=== PATIENT | male | born 1970 | race Caucasian/White ===

== ENCOUNTER 2017-06-03 14:25 | Emergency (ER) | payer SELFPAY ==
[~2017-06-03] VITALS: Ht 177.8 cm; Wt 140.0 kg
[2017-06-03] MEDS ORDERED: DEXTROSE 50% IN WATER 50 ML SYRINGE IV ONE (14:26)
[2017-06-03] MEDS ORDERED: SODIUM BICARBONATE 8.4% INJ 50 MEQ/50 ML SYR IV ONE (14:26)
[2017-06-03] MEDS ORDERED: EPINEPHrine HCL (1:10,000) 1 MG/10 ML SYRINGE IV ONE (14:26)
--- NOTE | 2017-06-03 14:46 | PD ---
HPI Chief Complaint: S/P ARREST Time Seen by Provider: 14:40 Travel History International Travel<30 days: No Contact w/Intl Traveler<30days: No Traveled to known affect area: No History of Present Illness HPI I SAW PATIENT IMMEDIATELY UPON ARRIVAL, CONFIRMED ETT FOR EMS....BELOW HX GIVEN BY EMS. PER EMS, COLLAPSED ON [employer] HOTEL AFTER HE C/O CP, TOOK ANTACIDS, HERE WITH FAMILY FROM OUT OF TOWN. EMS GAVE AMIODARONE 300MG, S/P DEFIB, EPIX3 AND INITIAL CPR STARTED AT 1331 BY HOTEL STAFF. [facility] Past Medical History Medical History: Unable to Obtain Social History Tobacco Use: No Review of Systems ROS Limitations: Clinical Condition Physical Exam Exam Limitations: Clinical Condition Narrative GENERAL: SKIN: CYANOTIC, HEAD: Atraumatic. Normocephalic. EYES: Pupils DILATED AND UNREACTIVE . ENT: No nasal bleeding or discharge. Mucous membranes pink and moist. NECK: Trachea midline. No JVD. CARDIOVASCULAR: ASYSTOLE RESPIRATORY: ETT 7.5, 22 AT THE LIP (BY EMS) NO BORBORIGMY, CLEAR LUNG SOUNDS BILATERALLY BUT APNEIC GASTROINTESTINAL: NO BOWEL SOUNDS, OBESE, NO CONTUSIONS OR SIGNS OF TRAUMA MUSCULOSKELETAL: Extremities without clubbing, cyanosis, or edema. No obvious deformities. NEUROLOGICAL: GCS 3T, NO SIGNS OF LIFE Data Data Orders Orders Sodium Bicarbonate 8.4% Inj (Sodium Bica (06/03/17 14:26) Epinephrine (1:10,000) Inj (Epinephrine (06/03/17 14:26) Dextrose 50% In Alex (Syr) Inj (D50w (Syr (06/03/17 14:26) MDM Medical Decision Making Medical Screen Exam Complete: Yes Emergency Medical Condition: Yes Medical Record Reviewed: Yes Differential Diagnosis STEMI V PE V AAA V DISSECTION V HYPERKALEMIA V HYPOGLYCEMIA V PERICARDIAL TAMPONADE V Narrative Course PATIENT DURING ENTIRE ED TREATMENT TIME, HAD NO SPONT PULSE OR ROSC, WAS IN ASYSTOLE THROUGHOUT ENTIRE TIME IN ED, FULLY APNEIC, CODE CALLED 1437 Critical Care Narrative CRITICAL CARE NOTE: With evaluation of the patient, labs, EKG, receipt of radiologic studies, administration of medications, reevaluation the patient and discussion of the patient with the admitting physicians, the total critical care time was [25] minutes. Time to perform other separately billable procedures was not included in the critical care time. Procedures Procedure Narrative BEDSIDE ULTRASOUND PERFORMED BY ME: NO CARDIAC ACTIVITY, NO PERICARDIAL EFFUSION NOTED, NO FLUID IN ELMORE'S POUCH NOR AT LEFT SPLENORENAL RECESS, NO AAA NOTED, AND NO PARACOLIC FLUID NOTED EITHER....PATIENT PRONOUNCED AFTER CONFIRMED NO CARDIAC ACTIVITY BY ULTRASOUND Diagnosis Primary Impression: S/P CARDIOPULMONARY ARREST Disposition: 20 Condition: Red Becker MD Jun 03, 2017 14:46
== END 2017-06-03 16:52 | disposition expired ==
LOC: NEPE 14:25 → NEPI 16:52
DX: I46.9 Cardiac arrest, cause unspecified (principal)
CPT/HCPCS: 99285; J0171